=== PATIENT | female | born 1945 | race Caucasian/White ===

== ENCOUNTER 2016-11-02 23:35 | Emergency (ER) | payer MEDICARE, OTHER, MEDICAID ==
[~2016-11-02] VITALS: Ht 160 cm; Wt 90.7 kg
[~2016-11-02 23:35] MED LIST: BENTYL10 MG PO; BUPROPION XL300 MG PO; CHOLESTYRAMINE P4 GM PO; CITALOPRAM HBR40 MG PO; DILAUDID4 MG PO; LEVOTHYROXINE25 MCG PO; OXYCODONE-ACET1 EAC1 PO; SULFASALAZINE500 MG PO; ZOFRAN ODT4 MG PO
[2016-11-04] MEDS ORDERED: BENTYL10 MG PO (14:42)
[2016-11-04] MEDS ORDERED: BACTRIM DS TAB1 EACH PO (14:43)
== END 2016-11-03 03:02 | disposition home or self-care (01) ==
LOC: ED 23:35
DX: R10.10 Upper abdominal pain, unspecified (principal); R19.7 Diarrhea, unspecified; R11.2 Nausea with vomiting, unspecified; Z98.890 Other specified postprocedural states; Z79.899 Other long term (current) drug therapy
CPT/HCPCS: 80053; 83690; 85025; 96361; 96374; 96375; 99284; J1170; J2405; J7030

== ENCOUNTER 2016-11-04 12:58 | Emergency (ER) | payer MEDICARE, OTHER, MEDICAID ==
[~2016-11-04] VITALS: Ht 160 cm; Wt 90.7 kg
[2016-11-04] MEDS ORDERED: BENTYL10 MG PO (14:42)
[2016-11-04] MEDS ORDERED: BACTRIM DS TAB1 EACH PO (14:43)
== END 2016-11-04 15:02 | disposition home or self-care (01) ==
LOC: ED 12:58
DX: K29.70 Gastritis, unspecified, without bleeding (principal); Z90.49 Acquired absence of other specified parts of digestive tract; Z98.890 Other specified postprocedural states; Z79.899 Other long term (current) drug therapy
CPT/HCPCS: 74177; 80053; 82150; 83690; 85025; 96361; 96374; 96375; 99284; J1170; J2405; J7030; Q9967

== ENCOUNTER 2016-11-05 11:13 | Emergency (ER) | payer MEDICARE, OTHER, MEDICAID ==
[~2016-11-05] VITALS: Ht 160 cm; Wt 90.7 kg
[~2016-11-05 11:13] MED LIST changes: +BACTRIM DS TAB1 EACH PO
== END 2016-11-05 15:13 | disposition home or self-care (01) ==
LOC: ED 11:13
DX: R11.10 Vomiting, unspecified (principal); F12.10 Cannabis abuse, uncomplicated; Z79.899 Other long term (current) drug therapy
CPT/HCPCS: 74020; 80053; 81001; 82150; 83690; 85025; 96361; 96372; 96374; 99283; J1885; J2550; J3486; J7030

== ENCOUNTER 2019-02-05 15:57 | Observation (INO) | payer MEDICARE, OTHER, MEDICAID ==
[~2019-02-05] VITALS: Ht 160 cm; Wt 73.0 kg
--- OUTSIDE RECORDS SUMMARY | 2019-02-05 16:00 | XMS ---
PreManage Notification: JULITO VALDEZ Security Insurance Administrator Events No recent Security Events currently on file CRITERIA MET - Group Notification - 6 ED Visits in 6 Months - [facility] - Has Care Guidelines - [facility] - 3 Facilities in 90 Days - [facility] - 2 Visits in 30 Days CARE PROVIDERS Dave Kruger DO [facility] Current PHONE: Unknown Koko Dobson Community Health Worker 01/31/2019-Current PHONE: [phone] DAVE KRUGER [facility] Care Current PHONE: Unknown Dave Kruger DO [facility] Current PHONE: Unknown DR DAVE KRUGER Primary Care 09/24/2016-Current PHONE: [phone] ordavid Case or Parimutuel Ticket Seller Current PHONE: Unknown Marivel has no Care Guidelines for this patient. Care History Medical/Surgical 01/21/2019 [facility] Patient indicates to ED SLIP BRIDGE OPERATOR that the only thing that helps her abdominal pain is dilaudid dispite being in her record that benadryl and haldol have worked in the past. Haldol, Benadryl and Zofran habe been administered with marked improvment in her symptoms. 11/25/2016 [facility] ACCORDING TO PCP OFFICE, PATIENT HAS CHRONIC ABD PAIN AND IS SUPPOSED TO CALL THEM WHEN SHE IS EXPERIENCING PAIN. PCP IS DR DAVE KRUGER, OF [facility] AT [phone]. E.D. VISIT COUNT (12 MO.) 3 [facility] Billy HMaria Guadalupe 2 [facility] 11 Luan Josiah YaelMaria Guadalupe 1 VIDYA [place] TOTAL 17 NOTE: Visits indicate total known visits. ED/UCC VISIT TRACKING (12 MO.) 02/05/2019 15:57 VIDYA Menendez [place] TYPE: Emergency COMPLAINT: - ABD PAIN, VOMITING 02/01/2019 13:24 Luan GUAJARDO [place] TYPE: Emergency DIAGNOSES: - Abdominal pain - Generalized abdominal pain 01/30/2019 15:52 [facility] [place] TYPE: Emergency DIAGNOSES: - Nausea - Acute cystitis without hematuria - Generalized abdominal pain - ABD PAIN 01/23/2019 09:15 [facility] Billy MCKEE TYPE: Emergency DIAGNOSES: - Abdominal Pain - Generalized abdominal pain 01/21/2019 16:11 [facility] Billy MCKEE TYPE: Emergency DIAGNOSES: - EMS' Triage; Abdomen Pain - Abdominal Pain - Nausea - Unspecified abdominal pain 01/15/2019 20:00 Luan MARIN TYPE: Emergency DIAGNOSES: - Abdominal Pain - Stomach Pain - Generalized abdominal pain - Other chronic pain 01/05/2019 18:13 Luan Rahman YaelMaria Guadalupe GUAJARDO [place] TYPE: Emergency DIAGNOSES: - abdominal pain - Acute cystitis with hematuria - Other chronic pain - Hypokalemia - Generalized abdominal pain - Acute cystitis with hematuria 01/02/2019 20:32 Luan MARIN TYPE: Emergency DIAGNOSES: - Dehydration - Nausea - Acidosis - Generalized abdominal pain - abdominal pain 12/29/2018 04:34 Luan MARIN TYPE: Emergency DIAGNOSES: - Trichomoniasis, unspecified Trichomon - Other specified abnormal findings of blood chemistry - abdominal pain - Acute cystitis without hematuria 08/08/2018 15:07 [facility] Billy MCKEE TYPE: Emergency DIAGNOSES: - Shaking - Unsp adverse effect of drug or medicament, init encntr - Weakness 08/01/2018 09:04 Luan GUAJARDO [place] TYPE: Emergency DIAGNOSES: - Abdominal Pain - Generalized abdominal pain - Cyclical vomiting, in migraine, not intractable 07/30/2018 20:19 Luan GUAJARDO [place] TYPE: Emergency DIAGNOSES: - Generalized abdominal pain - Nausea - Abdominal Pain 07/26/2018 14:19 Luan GUAJARDO [place] TYPE: Emergency DIAGNOSES: - Abdominal Pain - Dvrtclos of lg int w/o perforation or abscess w/o bleeding - Diaphragmatic hernia without obstruction or gangrene - Lower abdominal pain, unspecified 07/21/2018 20:09 Luan GUAJARDO [place] TYPE: Emergency DIAGNOSES: - Abdominal Pain - Gastro-esophageal reflux disease with esophagitis - Dyskinesia of esophagus - Diaphragmatic hernia without obstruction or gangrene 07/16/2018 11:00 [facility] [place] TYPE: Emergency DIAGNOSES: - Nausea with vomiting, unspecified - Epigastric pain - ABD AND BACK PAIN 06/12/2018 20:28 Luan GUAJARDO [place] TYPE: Emergency DIAGNOSES: - Vomiting, unspecified - Unspecified abdominal pain - Abdominal Pain - Diarrhea, unspecified 03/14/2018 10:25 Luan GUAJARDO [place] TYPE: Emergency DIAGNOSES: - Knee Pain - Pain in left leg - Leg Pain (Non-traumatic) INPATIENT VISIT TRACKING (12 MO.) No inpatient visits to display in this time frame [email or web address]
[2019-02-05] MEDS ORDERED: PHENADOZ25 MG PR (16:19)
[2019-02-05] MEDS ORDERED: LISINOPRIL-HCT1 EAC2 PO (16:20)
--- NOTE | 2019-02-05 22:30 | NUR ---
PT ARRIVES TO MED SURG ROOM 116 FROM ED, ADMITTED WITH DEHYDRAION AND ABD PAIN. IS ALERT AND ORIENTED, IN TO BR TO VOID SBA AND THEN INTO BED. GIVEN JELLO AND WATER. DENIES NAUSEA AT THIS TIME. LOVENOX AND IV REGLAN GIVEN AND PT STARTED ON IVF AT 125. PLAN OF CARE FOR THE NIGHT DISCUSSED WITH PT, ASSESSMENT DONE. PT HAS NO QUESTIONS AT THIS TIME AND STATES SHE IS VERY HAPPY WITH CARE SO FAR. VSS.
--- NOTE | 2019-02-06 00:39 | NUR ---
IN TO CHECK ON PT, APPEARS TO BE SLEEPING, RESP EVEN AND UNLABORED.
--- NOTE | 2019-02-06 01:31 | NUR ---
PT CALLS TO C/O LOWER BACK PAIN, ACCROSS FLANKS AND STATES IT WOKE HER UP AND SHE HAS A UTI AND REQUESTS PAIN MEDS. TYLENOL 500MG PO GIVEN.
--- NOTE | 2019-02-06 02:40 | NUR ---
PT APPEARS RESTFUL/SLEEPING. RESP EVEN AND UNLABORED. IVF INFUSING.
--- NOTE | 2019-02-06 04:30 | NUR ---
AWAKENS EASILY FOR VITALS AND ASSESSMENT. DENIES PAIN, STATES THAT HER ABD PAIN HAD STARTED BACK UP A BIT AGO BUT SHE WAS ABLE TO RELAX AND GO BACK TO SLEEP AND IT WENT AWAY. TOLERATING WATER AND JELLO. SPO2 WAS 90% ON ROOM AIR SO O2/2L/NC APPLIED AND SPO2 UP TO 94-95%.
--- NOTE | 2019-02-06 06:06 | NUR ---
PT CALLS TO STATE SHE THINKS HER ABD PAIN MAY BE RETURNING AND REQUESTING PAIN MEDS FOR IT. DESCRIBES IT "I JUST KEEP BEARING DOWN, OVER AND OVER AND THIS IS HOW IT STARTS". IS WONDERING IF SHE DRANK TOO MUCH WATER OR ATE TOO MUCH JELLO. FIRST REQUESTED IV PAIN MED SHE DOESNT WANT TO PUT ANYTHING IN HER STOMACH BUT AGREES TO TRY THE OXYCODONE. STATES IT IS NOT NAUSEA JUST THE LOWER ABDOMINAL PAIN/PRESSURE. 5MG OXYCODONE GIVEN WITH OTTONIEL REGLAN. WILL CALL IF PAIN DOES NOT IMPROVE.
--- NOTE | 2019-02-06 06:36 | NUR ---
PT ADMITTED LAST NIGHT FOR ABD PAIN WITH NAUSEA, VOMITING AND DEHYDRATION. WAS STARTED ON IVF AND CLEAR LIQUIDS, PAIN WAS GONE ON ARRIVAL TO UNIT BUT RETURNED THIS MORNING APPROX 0600 AND WAS GIVEN OXYCODONE. SHE C/O BILAT FLANK PAIN/LOWER BACK PAIN IN THE NIGHT THAT SHE FELT WAS RELATED TO A UTI AND WAS GIVEN TYLENOL. HAS TOLERATED JELLO AND WATER WITH NO NAUSEA OR EMESIS. URINE OUTPUT WAS MARGINAL BUT WITHIN PARAMETERS. WAS ABLE TO SLEEP FOR A FEW HOURS.
--- NOTE | 2019-02-06 08:03 | NUR ---
MORNING ASSESSMENT DONE. PATIENT RATES ABD PAIN 4/10, SLIGHTLY NAUSEATED AND GIVEN 4MG OF IV ZOFRAN FOR THIS. IVF INFUSING. PATIENT WEARING OXYGEN FOR SLEEP, 98% ON 2L, PATIENT IS ON ROOM AIR AT THIS TIME. PATIENT DENIES WANTING TO GET UP TO THE CHAIR FOR BREAKFAST, PREFERS TO REST IN BED. NO OTHER NEEDS AT THIS TIME.
--- NOTE | 2019-02-06 08:57 | NUR ---
PATIENT RESTING IN BED. SETS UP BATHROOM FOR SHOWER. IV WRAPPED. PATIENT GOES TO TAKE A SHOWER. LINENS CHANGED. WARM BLANKETS PROVIDED. CALL LIGHT WITHIN REACH. NO OTHER NEEDS AT THIS TIME
--- NOTE | 2019-02-06 09:13 | NUR ---
PATIENT RESTING IN BED. VITAL SIGNS AND I&O DONE. CALL LIGHT WITHIN REACH. NO OTHER NEEDS AT THIS TIME
--- NOTE | 2019-02-06 09:22 | NUR ---
PATIENT UP TO SHOWER, TOLERATED ACTIVITY WELL. IVF RESUMED. PATIENT FEELS "OKAY" TO TAKE MORNING PILLS.
--- NOTE | 2019-02-06 10:14 | NUR ---
PATIENT IS DOING WELL WITH CLEAR LIQUID, NO NAUSEA. PATIENT GIVEN 5MG OF PO OXYCODONE FOR 3/10 PAIN.
--- NOTE | 2019-02-06 11:13 | NUR ---
PATIENT ADVANCED TO FULL LIQUID DIET FOR LUNCH. DISCUSSED MENU CHOICES WITH PATIENT. NO NAUSEA AT THIS TIME.
--- NOTE | 2019-02-06 11:19 | NUR ---
CALL LIGHT ANSWERED. PATIENT RESTING IN BED. IN ROOM. PATIENT GOES TO USE BATHROOM. ONE PERSON ASSISTING. PATIENT BACKS TO BED. ICE WATER GIVEN. CALL LIGHT WITHIN REACH. NO OTHER NEEDS AT THIS TIME
--- NOTE | 2019-02-06 11:30 | NUR ---
Spoke with Camille and her . She states she has had abd pain for 10 years off and on. 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 does the cooking, cleaning, and laundry as she easliy fatigues. She states concern to go home today as she is tired and not feeling that well. Nurses notified.
--- NOTE | 2019-02-06 13:20 | NUR ---
PATIENT RESTING IN BED. IN ROOM. VITAL SIGNS AND I&O DONE. PATIENT GOES TO USE BATHROOM. ONE PERSON ASSISTING. PATIENT BACKS TO BED. CALL LIGHT WITHIN REACH. NO OTHER NEEDS AT THIS TIME
--- NOTE | 2019-02-06 14:10 | NUR ---
PATIENT ON A FULL LIQUID DIET, SPOUSE ORDERED HOT TURKEY SANDWICH AND SALAD FOR PATIENT. PATIENT REPORTS SHE DID NOT EAT VERY MUCH OF HER LUNCH, IS HAVING SOME NAUSEA. IV ZOFRAN 4MG GIVEN.
--- NOTE | 2019-02-06 14:49 | NUR ---
DR. MENDES IN TO SEE PATIENT, PLAN IS FOR PATIENT TO STAY ONE MORE DAY.
[2019-02-06] MEDS ORDERED: LEVOTHYROXINE50 MCG PO (15:37)
[2019-02-06] MEDS ORDERED: TRAZODONE HCL100 MG PO (15:39)
--- NOTE | 2019-02-06 17:10 | NUR ---
PATIENT FEELING SLIGHTLY BETTER TODAY, TOLERATING A FULL LIQUID BETTER THIS EVENING.
--- NOTE | 2019-02-06 17:55 | NUR ---
PATIENT HAS BEEN FEELING SLIGHTLY BETTER TODAY, INCREASED INTAKE OF BLAND FOODS ON A FULL LIQUID DIET. IVF OF LR@75ML/HOUR INFUSING TO RIGHT AC. PATIENT IS SBA TO BATHROOM. DISCUSSED WITH PATIENT THE NEED TO ADVANCE DIET SLOWLY. PATENT HAS REQUIRED LESS PAIN MEDICATIONS THIS EVENING.
--- NOTE | 2019-02-06 19:56 | NUR ---
IN BED, RECEIVED SCHEDULED REGLAN 5MG IV, C/O ABD PAIN, MEDICATED WITH OXYCODONE 5MG PO C/O ABD PAIN/CRAMPING, ON ROOM AIR, IVF INFUSING, REPOSITIONS SELF, NO C/O N/V AT THIS TIME. ON FULL LIQUIDS, CALL LIGHT AND FLUIDS AT BEDSIDE
--- NOTE | 2019-02-06 20:30 | NUR ---
ROUNDED CHARGE. PATIENT IS RESTING IN BED. PATIENT PROVIDEED WITH FRESH ICE WATER AND ICE CHIPS. PATIENT DENIES ANY COMMENTS, QUESTIONS OR COCNERNS. PATIENT ASSISTED TO THE RESTROOM AND EDUCATED TO PULL BLUE CORD WHEN DONE.
--- NOTE | 2019-02-06 21:43 | NUR ---
ASSISTED PT TO RESTROOM. AMBULATED WITHOUT ASSISTANCE.
--- NOTE | 2019-02-06 23:39 | NUR ---
RESTING, EYES CLOSED, NO RESP DISTRESS, IVF INFUSING, NO FURTHER C/O N/V OR PAIN. CALL LIGHT AT BEDSIDE
--- NOTE | 2019-02-07 00:03 | NUR ---
UP TO BR, VOIDED, BACK TO BED, TOLERATED WELL, REPOSITIONS SELF IN BED. TOLERATING SIPS OF FLUID WELL. NO C/O N/V OR PAIN. IVF INFUSING WELL. PT WEARING HER OWN CLOTHES
--- NOTE | 2019-02-07 02:01 | NUR ---
RESTING, NO RESP DISTRESS, NO FURTHER C/O N/V OR PAIN AT THIS TIME
--- NOTE | 2019-02-07 03:07 | NUR ---
awake, after getting up to br, voided, back to bed, warm blanket given on requests, denies n/v or c/o abd pain, using call light appropriately
--- NOTE | 2019-02-07 05:27 | NUR ---
PT HAS SLEPT MOST OF THIS SHIFT, UP TO BR WITH ASSIST, VOIDING QS, NO N/V THIS SHIFT. WAS MEDICATED WITH SCHEDULED REGLAN AND OXYCODONE X1 PER C/O ABD PAIN WITH GOOD PAIN RELIEF. IVF INFUSING W/O PROBLEMS. COOPERATIVE WITH ASSESSMENT
--- NOTE | 2019-02-07 06:44 | NUR ---
pt up to br, voided, back to bed, c/o abd feeling weird, anxious look in her face, bowels assessed, he bowel tones auscultated in r quads, has had no bm this shift, and pt denies passing gas or burping. Medicated with Oxycodone 5mg po c/o 09/03 abd pain. abd soft to touch, no emesis, received Reglan 5mg IV scheduled, tolerating ice chips and fluids, pt on full liquids diet. Reassured. calmer at thist dre, will continue to reassure and medicated as needed.
--- NOTE | 2019-02-07 07:29 | NUR ---
0725: BEDSIDE REPORT RECIEVED FROM SHAWN NEVES. PT RESTING IN HER BED AND SHE DENIES ANY ABD PAIN OR PROBLEMS AT THIS TIME. CALL LIGHT WITHIN REACH.
--- NOTE | 2019-02-07 08:29 | NUR ---
PT RESTING IN HER BED AND SHE STATES HER ABD PAIN IS A 2/10 WHICH IS ACCEPTABLE TO HER. HER ABD SOUNDS ARE ACTIVE IN ALL QUADS AND SHE ATE HER FULL LIQUID DIET THIS AM AND STATES THE PAIN IS UNCHANGED SINCE EATING. PT DENIES ANY OTHER PROBLEMS.
[2019-02-07] MEDS ORDERED: PHENADOZ25 MG PR ×2 (09:25→10:02)
[2019-02-07] MEDS ORDERED: BACTRIM DS TAB1 EACH PO (10:03)
[2019-02-07] MEDS ORDERED: ONDANSETRON ODT4 MG PO (10:05)
[2019-02-07] MEDS ORDERED: VITAMIN B-121000 MCG PO (10:08)
[2019-02-07] MEDS ORDERED: MULTI-VITAMIN1 EACH PO (10:08)
--- NOTE | 2019-02-07 10:13 | NUR ---
MED REC COMPLETE
--- NOTE | 2019-02-07 10:13 | NUR ---
Pt states, "I'm doing okay". She states her abd pain remains at a 2/10 which is acceptable to her and that it is "much better" than when she came into the hospital.
[2019-02-07] MEDS ORDERED: OXYCODONE HCL5 MG PO (11:14)
--- NOTE | 2019-02-07 12:30 | NUR ---
LATE ENTRY FROM 1000 THIS MORNING: PATIENT WAS ADMITTED AT HIGH RISK FOR MALNUTRITION DUE TO RECENT WEIGHT LOSS. SHE STATES SHE HAS LOST ABOUT 24 LBS IN THE LAST SEVERAL WEEKS BECAUSE SHE HAS NOT FELT LIKE EATING DUE TO STOMACH PAIN OR KNOWING SHE WOULD VOMIT THE FOOD BACK UP. SHE WAS ONLY TAKING BITES OF FOOD. SHE WAS TOLERATING FULL LIQUIDS OK PRIOR TO DISCHARGE, BUT NOT EATING A LOT. I MENTIONED SHE SHOULD TRY ENSURE FOR ADDED CALORIES AND PROTEIN. THE GOAL IS FOR HER TO EAT REGULAR, BALANCED MEALS TO MEET HER NUTRITION NEEDS, BUT UNTIL SHE IS ABLE TO EAT MORE SHE SHOULD DRINK 2 ENSURES DAILY. SHE IS WILLING TO TRY IT AND APPRECIATED KNOWING THAT WOULD BE HELPFUL TO HER.
== END 2019-02-07 11:55 | disposition home or self-care (01) ==
LOC: ED 15:57 → CCU 15:58 → MS 15:58
PROVIDERS: ADMIT Internal Medicine
DX: R10.13 Epigastric pain (principal); G89.29 Other chronic pain; E86.0 Dehydration; K58.9 Irritable bowel syndrome, unspecified; K51.90 Ulcerative colitis, unspecified, without complications; I10 Essential (primary) hypertension; E03.9 Hypothyroidism, unspecified; F33.9 Major depressive disorder, recurrent, unspecified; Z79.899 Other long term (current) drug therapy; Z85.048 Personal history of other malignant neoplasm of rectum, rectosigmoid junction, and anus; Z90.49 Acquired absence of other specified parts of digestive tract
CPT/HCPCS: 51701; 74177; 80048; 80053; 81001; 83690; 85025; 86140; 94760; 96361; 96372; 96375; 96376; 99285-25; G0378; J1650; J1885; J2270; J2405; J2765; J7030; J7121

== ENCOUNTER 2019-02-11 08:46 | Emergency (ER) | payer MEDICARE, OTHER, MEDICAID ==
[~2019-02-11] VITALS: Ht 160 cm; Wt 73.0 kg
[~2019-02-11 08:46] MED LIST changes: +LEVOTHYROXINE50 MCG PO; +LISINOPRIL-HCT1 EAC2 PO; +MULTI-VITAMIN1 EACH PO; +ONDANSETRON ODT4 MG PO; +OXYCODONE HCL5 MG PO; +PHENADOZ25 MG PR; +TRAZODONE HCL100 MG PO; +VITAMIN B-121000 MCG PO
--- OUTSIDE RECORDS SUMMARY | 2019-02-11 08:50 | XMS ---
PreManage Notification: JULITO VALDEZ Security First Aid Teacher Events No recent Security Events currently on file CRITERIA MET - Group Notification - 6 ED Visits in 6 Months - [facility] - Has Care Guidelines - [facility] - 3 Facilities in 90 Days - [facility] - 2 Visits in 30 Days CARE PROVIDERS Dave Kruger DO [facility] Current PHONE: Unknown Koko Dobson Community Health Worker 01/31/2019-Current PHONE: [phone] DAVE KRUGER [facility] Care Current PHONE: Unknown Dave Kruger DO [facility] Current PHONE: Unknown DR DAVE KRUGER Primary Care 09/24/2016-Current PHONE: [phone] ordavid Case or Animal Keeper Current PHONE: Unknown Marivel has no Care Guidelines for this patient. Care History Medical/Surgical 01/21/2019 [facility] Patient indicates to ED AVIATION PROJECT MANAGER that the only thing that helps her abdominal pain is dilaudid dispite being in her record that benadryl and haldol have worked in the past. Haldol, Benadryl and Zofran habe been administered with marked improvment in her symptoms. 11/25/2016 [facility] ACCORDING TO PCP OFFICE, PATIENT HAS CHRONIC ABD PAIN AND IS SUPPOSED TO CALL THEM WHEN SHE IS EXPERIENCING PAIN. PCP IS DR DAVE KRUGER, OF [facility] AT [phone]. E.D. VISIT COUNT (12 MO.) 3 [facility] Billy HMaria Guadalupe 2 [place] [id number] Luan Pena 2 VIDYA Peralta TOTAL 18 NOTE: Visits indicate total known visits. ED/UCC VISIT TRACKING (12 MO.) 02/11/2019 08:47 VIDYA Menendez [place] TYPE: Emergency COMPLAINT: - STOMACH PAIN 02/05/2019 15:57 VIDYA Menendez [place] TYPE: Emergency COMPLAINT: - ABD PAIN, VOMITING 02/01/2019 13:24 Luan Josiah YaelMaria Guadalupe MARIN TYPE: Emergency DIAGNOSES: - Abdominal pain - Generalized abdominal pain 01/30/2019 15:52 [facility] [place] TYPE: Emergency DIAGNOSES: - Nausea - Acute cystitis without hematuria - Generalized abdominal pain - ABD PAIN 01/23/2019 09:15 [facility] Billy MCKEE TYPE: Emergency DIAGNOSES: - Abdominal Pain - Generalized abdominal pain 01/21/2019 16:11 [facility] Billy MCKEE TYPE: Emergency DIAGNOSES: - EMS' Triage; Abdomen Pain - Abdominal Pain - Nausea - Unspecified abdominal pain 01/15/2019 20:00 Luan Olivaresbijal YaelMaria Guadalupe GUAJARDO [place] TYPE: Emergency DIAGNOSES: - Abdominal Pain - Stomach Pain - Generalized abdominal pain - Other chronic pain 01/05/2019 18:13 Luan Olivaresbijal YaelMaria Guadalupe GUAJARDO [place] TYPE: Emergency DIAGNOSES: - abdominal pain - Acute cystitis with hematuria - Other chronic pain - Hypokalemia - Generalized abdominal pain - Acute cystitis with hematuria 01/02/2019 20:32 Luan Rahman YaelMaria Guadalupe GUAJARDO [place] TYPE: Emergency DIAGNOSES: - Dehydration - Nausea - Acidosis - Generalized abdominal pain - abdominal pain 12/29/2018 04:34 Luan GUAJARDO [place] TYPE: Emergency DIAGNOSES: - Trichomoniasis, unspecified Trichomon - Other specified abnormal findings of blood chemistry - abdominal pain - Acute cystitis without hematuria 08/08/2018 15:07 [place] Billy YaelMaria Guadalupe MCKEE TYPE: Emergency DIAGNOSES: - Shaking - Unsp adverse effect of drug or medicament, init encntr - Weakness 08/01/2018 09:04 Luan MARIN TYPE: Emergency DIAGNOSES: - Abdominal Pain - Generalized abdominal pain - Cyclical vomiting, in migraine, not intractable 07/30/2018 20:19 Luan MARIN TYPE: Emergency DIAGNOSES: - Generalized abdominal pain [...] hernia without obstruction or gangrene 07/16/2018 11:00 [facility] [place] TYPE: Emergency DIAGNOSES: - Nausea [...] Pain (Non-traumatic) INPATIENT VISIT TRACKING (12 MO.) 02/05/2019 15:[address] [facility] [place] TYPE: Observation COMPLAINT: - NAUSEA/VOMITING/DEHYDRATION DIAGNOSES: - Unspecified abdominal pain - Other cheese wrapper (current) drug therapy - Essential (primary) hypertension - Irritable bowel syndrome without diarrhea - Dehydration - Ulcerative colitis, unspecified, without complications - Major depressive disorder, recurrent, unspecified - Other chronic pain - Epigastric pain - Prsnl hx of malig neoplm of rectum, rectosig junct, and anus - Acquired absence of other specified parts of digestive tract - Hypothyroidism, unspecified [id number]
[2019-02-11] MEDS ORDERED: PROMETHAZINE12.5 M1 PO (14:49)
== END 2019-02-11 15:26 | disposition home or self-care (01) ==
LOC: ED 08:46
DX: R10.84 Generalized abdominal pain (principal); R19.7 Diarrhea, unspecified; E87.6 Hypokalemia; Z79.899 Other long term (current) drug therapy
CPT/HCPCS: 80053; 81001; 83690; 85025; 96374; 96375; 99284-25; J1170; J1200; J1630; J2405; J7121

== ENCOUNTER 2019-09-08 22:50 | Emergency (ER) | payer MEDICARE, OTHER, MEDICAID ==
[~2019-09-08] VITALS: Ht 160 cm; Wt 83.5 kg
[~2019-09-08 22:50] MED LIST changes: +PROMETHAZINE12.5 M1 PO
--- OUTSIDE RECORDS SUMMARY | 2019-09-08 22:52 | XMS ---
PreManage Notification: JULITO VALDEZ Security Sole Layer Events No recent Security Events currently on file CRITERIA MET - Group Notification - [facility] - Has Care Guidelines CARE PROVIDERS Dave Kruger [facility] Current PHONE: [phone] Koko Dobson Community Health Worker 01/31/2019-Current PHONE: [phone] Marivel has no Care Guidelines for this patient. Care History Medical/Surgical 01/21/2019 [facility] Patient indicates to ED BOX FABRICATOR that the only thing that helps her abdominal pain is dilaudid dispite being in her record that benadryl and haldol have worked in the past. Haldol, Benadryl and Zofran habe been administered with marked improvment in her symptoms. 11/25/2016 [facility] ACCORDING TO PCP OFFICE, PATIENT HAS CHRONIC ABD PAIN AND IS SUPPOSED TO CALL THEM WHEN SHE IS EXPERIENCING PAIN. PCP IS DR DAVE KRUGER, OF [facility] AT [phone]. E.D. VISIT COUNT (12 MO.) 2 [facility] Billy Pena 1 [facility] 6 Luan OlivaresRoss 3 VIDYA Peralta TOTAL 12 NOTE: Visits indicate total known visits. ED/UCC VISIT TRACKING (12 MO.) 09/08/2019 22:50 VIDYA Menendez [place] TYPE: Emergency COMPLAINT: - FALL 02/16/2019 15:35 Luan GUAJARDO [place] TYPE: Emergency DIAGNOSES: - Unspecified abdominal pain - back pain, diarrhea - Hematuria, unspecified - Back Pain - Low back pain - Other chronic pain 02/11/2019 08:47 VIDYA [place]endez [place] TYPE: Emergency COMPLAINT: - STOMACH PAIN DIAGNOSES: - Diarrhea, unspecified - Hypokalemia - Other group home (current) drug therapy - Generalized abdominal pain 02/05/2019 15:57 VIDYA [place] TYPE: Emergency COMPLAINT: - ABD PAIN, VOMITING 02/01/2019 13:24 Luan GUAJARDO [place] TYPE: Emergency DIAGNOSES: - Abdominal pain - Generalized abdominal pain 01/30/2019 15:52 [facility] [place] TYPE: Emergency DIAGNOSES: - Nausea - Acute cystitis without hematuria - Generalized abdominal pain - ABD PAIN 01/23/2019 09:15 [facility] Billy MCKEE TYPE: Emergency DIAGNOSES: - Abdominal Pain - Generalized abdominal pain 01/21/2019 16:11 [facility] Billy MCKEE TYPE: Emergency DIAGNOSES: - EMS' Triage; Abdomen Pain - Abdominal Pain - Nausea - Unspecified abdominal pain 01/15/2019 20:00 Luan MARIN TYPE: Emergency DIAGNOSES: - Abdominal Pain - Stomach Pain - Generalized abdominal pain - Other chronic pain 01/05/2019 18:13 Luan GUAJARDO [place] TYPE: Emergency DIAGNOSES: - abdominal pain - Acute cystitis with hematuria - Other chronic pain - Hypokalemia - Generalized abdominal pain - Acute cystitis with hematuria 01/02/2019 20:32 Luan GUAJARDO [place] TYPE: Emergency DIAGNOSES: - Dehydration - Nausea - Acidosis - Generalized abdominal pain - abdominal pain 12/29/2018 04:34 Luan GUAJARDO [place] TYPE: Emergency DIAGNOSES: - Trichomoniasis, unspecified - Other specified abnormal findings of blood chemistry - abdominal pain - Acute cystitis without hematuria INPATIENT VISIT TRACKING (12 MO.) 02/05/2019 15:58 VIDYA Menendez [place] TYPE: Observation COMPLAINT: - NAUSEA/VOMITING/DEHYDRATION DIAGNOSES: - Unspecified abdominal pain - Other group home (current) drug therapy - Essential (primary) hypertension - Irritable bowel syndrome without diarrhea - Dehydration - Ulcerative colitis, unspecified, without complications - Major depressive disorder, recurrent, unspecified - Other chronic pain - Epigastric pain - Personal history of other malignant neoplasm of rectum, recto - Acquired absence of other specified parts of digestive tract - Hypothyroidism, unspecified [email or web address]
[2019-09-09] MEDS ORDERED: NORCO 5-325 TA1 EACH PO (00:48)
== END 2019-09-09 00:57 | disposition home or self-care (01) ==
LOC: ED 22:50
DX: S30.0XXA Contusion of lower back and pelvis, initial encounter (principal); Z79.899 Other long term (current) drug therapy; W18.30XA Fall on same level, unspecified, initial encounter
CPT/HCPCS: 72100; 72170; 99283-25

== ENCOUNTER 2019-12-17 15:08 | Emergency (ER) | payer MEDICARE, OTHER, MEDICAID ==
[~2019-12-17] VITALS: Ht 160 cm; Wt 88.9 kg
[~2019-12-17 15:08] MED LIST changes: +NORCO 5-325 TA1 EACH PO
--- OUTSIDE RECORDS SUMMARY | 2019-12-17 15:12 | XMS ---
PreManage Notification: JULITO VALDEZ Security Alignment Specialist Events No recent Security Events currently on file CRITERIA MET - Group Notification - [facility] - Has Care Guidelines - PDMP CARE PROVIDERS Dave Kruger [facility] Current PHONE: [phone] Koko Dobson Community Health Worker 01/31/2019-Current PHONE: [phone] Marivel has no Care Guidelines for this patient. Care History Medical/Surgical 01/21/2019 [facility] Patient indicates to ED GREEN HIDE INSPECTOR that the only thing that helps her abdominal pain is dilaudid dispite being in her record that benadryl and haldol have worked in the past. Haldol, Benadryl and Zofran habe been administered with marked improvment in her symptoms. 11/25/2016 [facility] ACCORDING TO PCP OFFICE, PATIENT HAS CHRONIC ABD PAIN AND IS SUPPOSED TO CALL THEM WHEN SHE IS EXPERIENCING PAIN. PCP IS DR DAVE KRUGER, OF [facility] AT [phone]. E.D. VISIT COUNT (12 MO.) 2 [facility] Billy Pena 1 [facility] 6 Luan Josiah Peralta TOTAL 13 NOTE: Visits indicate total known visits. ED/UCC VISIT TRACKING (12 MO.) 12/17/2019 15:09 [facility] [place] TYPE: Emergency COMPLAINT: - BACK PAIN 09/08/2019 22:50 [facility] [place] TYPE: Emergency COMPLAINT: - FALL DIAGNOSES: - Low back pain - Fall on same level, unspecified, initial encounter - Other intermodal owner operator truck driver (current) drug therapy - Contusion of lower back and pelvis, initial encounter 02/16/2019 15:35 Luan GUAJARDO [place] TYPE: Emergency DIAGNOSES: - Unspecified abdominal pain - back pain, diarrhea - Hematuria, unspecified - Back Pain - Low back pain - Other chronic pain 02/11/2019 08:47 [facility] [place] TYPE: Emergency COMPLAINT: - STOMACH PAIN DIAGNOSES: - Diarrhea, unspecified - Hypokalemia - Other usp (current) drug therapy - Generalized abdominal pain 02/05/2019 15:57 [facility] [place] TYPE: Emergency COMPLAINT: - ABD PAIN, VOMITING 02/01/2019 13:24 Luan Josiah YaelMaria Guadalupe MARIN TYPE: Emergency DIAGNOSES: - Abdominal pain - Generalized abdominal pain 01/30/2019 15:52 [facility] [place] TYPE: Emergency DIAGNOSES: - Nausea - Acute cystitis without hematuria - Generalized abdominal pain - ABD PAIN 01/23/2019 09:15 [facility] Billy MCKEE TYPE: Emergency DIAGNOSES: - Abdominal Pain - Generalized abdominal pain 01/21/2019 16:11 [facility] Billy MCKEE TYPE: Emergency DIAGNOSES: - EMS' Triage; Abdomen Pain - Abdominal Pain - Nausea - Unspecified abdominal pain 01/15/2019 20:00 Luan Josiah YaelMaria Guadalupe GUAJARDO [place] TYPE: Emergency DIAGNOSES: - Abdominal Pain - Stomach Pain - Generalized abdominal pain - Other chronic pain 01/05/2019 18:13 Luan Josiah YaelMaria Guadalupe GUAJARDO [place] TYPE: Emergency DIAGNOSES: [...] TRACKING (12 MO.) 02/05/2019 15:[address] [facility] [place] TYPE: Observation COMPLAINT: - NAUSEA/VOMITING/DEHYDRATION DIAGNOSES: - Unspecified abdominal pain - Other intermodal owner operator truck driver (current) drug therapy - Essential (primary) hypertension - Irritable bowel syndrome without diarrhea - Dehydration - Ulcerative colitis, unspecified, without complications - Major depressive disorder, recurrent, unspecified - Other chronic pain - Epigastric pain - Personal history of other malignant neoplasm of rectum, recto - Acquired absence of other specified parts of digestive tract - Hypothyroidism, unspecified [email or web address]
[2019-12-17] MEDS ORDERED: AMOXICILLIN500 MG PO (15:41)
[2019-12-17] MEDS ORDERED: MULTIVITAMINS1 EAC7 PO (15:42)
[2019-12-17] MEDS ORDERED: CHOLESTYRAMINE P4 GM PO (15:42)
[2019-12-17] MEDS ORDERED: PREDNISONE20 MG PO (17:41)
[2019-12-17] MEDS ORDERED: ACETAMINOPHEN-1 EAC1 PO (17:44)
== END 2019-12-17 18:08 | disposition home or self-care (01) ==
LOC: ED 15:08
DX: G89.29 Other chronic pain (principal); M54.5 Low back pain; Z79.899 Other long term (current) drug therapy
CPT/HCPCS: 99283; J7512

== ENCOUNTER 2020-10-04 02:18 | Emergency (ER) | payer MEDICARE, MEDICAID, OTHER ==
[~2020-10-04] VITALS: Ht 160 cm; Wt 88.9 kg
[~2020-10-04 02:18] MED LIST changes: +ACETAMINOPHEN-1 EAC1 PO; +AMOXICILLIN500 MG PO; +MULTIVITAMINS1 EAC7 PO; +PREDNISONE20 MG PO
--- OUTSIDE RECORDS SUMMARY | 2020-10-04 02:22 | XMS ---
PreManage Notification: JULITO VALDEZ Security Machine Staker Events No recent Security Events currently on file CRITERIA MET - PDMP - Group Notification CARE PROVIDERS Dave Kruger [facility] Current PHONE: [phone] Koko Dobson Community Health Worker 01/31/2019-Current PHONE: [phone] Marivel has no Care Guidelines for this patient. Care History Medical/Surgical 01/21/2019 [facility] Patient indicates to ED ACCOUNT EXECUTIVE SOFTWARE SALES that the only thing that helps her abdominal pain is dilaudid dispite being in her record that benadryl and haldol have worked in the past. Haldol, Benadryl and Zofran habe been administered with marked improvment in her symptoms. 11/25/2016 [facility] ACCORDING TO PCP OFFICE, PATIENT HAS CHRONIC ABD PAIN AND IS SUPPOSED TO CALL THEM WHEN SHE IS EXPERIENCING PAIN. PCP IS DR DAVE KRUGER, OF [facility] AT [phone]. E.D. VISIT COUNT (12 MO.) 2 VIDYA Peralta TOTAL 2 NOTE: Visits indicate total known visits. ED/UCC VISIT TRACKING (12 MO.) 10/04/2020 02:19 [facility] [place] TYPE: Emergency COMPLAINT: - ABDOM PAIN 12/17/2019 15:09 [facility] [place] TYPE: Emergency COMPLAINT: - BACK PAIN DIAGNOSES: - Other chronic pain - Low back pain - Pain in thoracic spine - Other intermodal dispatcher (current) drug therapy INPATIENT VISIT TRACKING (12 MO.) 07/23/2020 09:19 [facility] Roberto Mendez [place] TYPE: Orthopedic DIAGNOSES: - Mechanical loosening of internal left knee prosthetic joint, initial encounter [email or web address]
[2020-10-04] MEDS ORDERED: HYDROMORPHONE HC4 MG PO ×2 (02:30)
[2020-10-04] MEDS ORDERED: HYDROCODON-ACE1 EAC8 PO (02:30)
[2020-10-04] MEDS ORDERED: TRAMADOL HCL50 MG PO (02:30)
[2020-10-05] MEDS ORDERED: SERTRALINE HCL100 MG PO (13:51)
== END 2020-10-04 04:42 | disposition home or self-care (01) ==
LOC: ED 02:18
DX: R10.13 Epigastric pain (principal); Z79.899 Other long term (current) drug therapy; Z79.891 Long term (current) use of opiate analgesic
CPT/HCPCS: 80053; 81001; 83690; 85025; 96374; 96375; 99284-25; J1170; J2405; J7040

== ENCOUNTER 2020-10-05 13:30 | Emergency (ER) | payer MEDICARE, MEDICAID, OTHER ==
[~2020-10-05] VITALS: Ht 160 cm; Wt 88.9 kg
[~2020-10-05 13:30] MED LIST changes: +HYDROCODON-ACE1 EAC8 PO; +HYDROMORPHONE HC4 MG PO; +TRAMADOL HCL50 MG PO
[2020-10-05] MEDS ORDERED: SERTRALINE HCL100 MG PO (13:51)
--- OUTSIDE RECORDS SUMMARY | 2020-10-05 14:02 | XMS ---
PreManage Notification: JULITO VALDEZ Security Wrapper Rewinder Events No recent Security Events currently on file CRITERIA MET - [facility] - 2 Visits in 30 Days - Group Notification CARE PROVIDERS Dave Kruger [facility] Current PHONE: [phone] Koko Dobson Community Health Worker 01/31/2019-Current PHONE: [phone] Marivel has no Care Guidelines for this patient. Care History Medical/Surgical 01/21/2019 [facility] Patient indicates to ED FUNERAL HOME LOCATION MANAGER that the only thing that helps her abdominal pain is dilaudid dispite being in her record that benadryl and haldol have worked in the past. Haldol, Benadryl and Zofran habe been administered with marked improvment in her symptoms. 11/25/2016 [facility] ACCORDING TO PCP OFFICE, PATIENT HAS CHRONIC ABD PAIN AND IS SUPPOSED TO CALL THEM WHEN SHE IS EXPERIENCING PAIN. PCP IS DR DAVE KRUGER, OF [facility] AT [phone]. E.D. VISIT COUNT (12 MO.) [address] [facility] [address] [facility] [place] TOTAL 3 NOTE: Visits indicate total known visits. ED/UCC VISIT TRACKING (12 MO.) 10/05/2020 13:31 [facility] [place] [place] TYPE: Emergency COMPLAINT: - ABDOMINAL PAIN 10/04/2020 02:19 VIDYA Marie TYPE: Emergency COMPLAINT: - ABDOM PAIN 12/17/2019 15:09 VIDYA Marie TYPE: Emergency COMPLAINT: - BACK PAIN DIAGNOSES: - Other chronic pain - Low back pain - Pain in thoracic spine - Other usp (current) drug therapy INPATIENT VISIT TRACKING (12 MO.) 07/23/2020 09:19 [facility] DIAGNOSES: - Mechanical loosening of internal left knee prosthetic joint, initial encounter [email or web address]
== END 2020-10-06 00:20 | disposition home or self-care (01) ==
LOC: ED 13:30
DX: R10.13 Epigastric pain (principal); Z79.899 Other long term (current) drug therapy; Z79.891 Long term (current) use of opiate analgesic
CPT/HCPCS: 74177; 80053; 81001; 83690; 85025; 96375; 96376; 99284-25; J0500; J1170; J1790; J2405; J7030; Q9967

== ENCOUNTER 2020-10-08 20:00 | Inpatient (IN) | payer MEDICARE, OTHER, MEDICAID ==
[~2020-10-08] VITALS: Ht 160 cm; Wt 84.1 kg
[~2020-10-08 20:00] MED LIST changes: +SERTRALINE HCL100 MG PO
--- OUTSIDE RECORDS SUMMARY | 2020-10-08 20:02 | XMS ---
PreManage Notification: JULITO VALDEZ Security Valve Tester Events No recent Security Events currently on file CRITERIA MET - [facility] - 2 Visits in 30 Days - PDMP - Group Notification CARE PROVIDERS Dave Kruger [facility] Current PHONE: [phone] Koko Dobson Community Health Worker 01/31/2019-Current PHONE: [phone] Marivel has no Care Guidelines for this patient. Care History Medical/Surgical 01/21/2019 [facility] Patient indicates to ED COLLECTIONS AND ARCHIVES DIRECTOR that the only thing that helps her [...] PAIN. PCP IS DR DAVE KRUGER, OF [facility] AT [phone]. E.D. VISIT COUNT (12 MO.) [address] [facility] [place] TOTAL 4 NOTE: Visits indicate total known visits. ED/UCC VISIT TRACKING (12 MO.) 10/08/2020 20:00 [facility] [place] TYPE: Emergency COMPLAINT: - STOMACH PAIN, UNABLE TO EAT 10/05/2020 13:31 V[facility] Marie TYPE: Emergency COMPLAINT: - ABDOMINAL PAIN 10/04/2020 02:19 [facility] [place] TYPE: Emergency COMPLAINT: - ABDOM PAIN DIAGNOSES: - termite control technician (current) use of opiate analgesic - Epigastric pain - Other bed bug exterminator (current) drug therapy 12/17/2019 15:09 VIDYA Marie TYPE: Emergency COMPLAINT: - BACK PAIN DIAGNOSES: - Other chronic pain - Low back pain - Pain in thoracic spine - Other [facility] (current) drug therapy INPATIENT VISIT TRACKING (12 MO.) 07/23/2020 09:19 [facility] Roberto Mendez [place] TYPE: Orthopedic DIAGNOSES: - Mechanical loosening of internal left knee prosthetic joint, initial encounter [id number]
--- NOTE | 2020-10-09 07:11 | EKG ---
[facility] [address] [place], [place] [address] Signed Atrial flutter with variable AV block Left axis deviation ST \T\ T wave abnormality, consider inferolateral ischemia Abnormal ECG No previous ECGs available Confirmed by JUVE CROCKER MD ([id number]) on 10/09/2020 7:11:44 AM Electronically Signed By: JUVE CROCKER MD 10/09/20 0711 PATIENT NAME: JULITO VALDEZ ERNESTO Electrocardiogram DATE OF : 41 PHYSICIAN: JUVE CROCKER MD REPORT #: [id number] REPORT IS CONFIDENTIAL AND NOT TO BE RELEASED WITHOUT AUTHORIZATION
[2020-10-09] MEDS ORDERED: HYDROCODON-ACE1 EA10 PO (11:10)
[2020-10-09] MEDS ORDERED: VITAMIN D350 MCG PO (11:13)
[2020-10-12] MEDS ORDERED: DILTIAZEM 24HR120 MG PO (12:33)
[2020-10-12] MEDS ORDERED: HYDROMORPHONE HC2 MG PO (12:34)
[2020-10-12] MEDS ORDERED: PANTOPRAZOLE SO40 MG PO (12:35)
[2020-10-12] MEDS ORDERED: PREDNISONE10 MG PO (12:35)
== END 2020-10-12 13:30 | disposition home or self-care (01) | DRG 309 ==
LOC: ED 20:00 → CCU 10-09 00:26 → MS 10-10 22:10
PROVIDERS: ADMIT Internal Medicine; ATTEND Internal Medicine
DX: I48.91 Unspecified atrial fibrillation (principal); N17.9 Acute kidney failure, unspecified; E27.40 Unspecified adrenocortical insufficiency; K58.9 Irritable bowel syndrome, unspecified; E86.0 Dehydration; Z20.822 Contact with and (suspected) exposure to COVID-19; E03.9 Hypothyroidism, unspecified; G89.29 Other chronic pain; F41.9 Anxiety disorder, unspecified; F32.9 Major depressive disorder, single episode, unspecified; M54.9 Dorsalgia, unspecified; Z96.652 Presence of left artificial knee joint; Z90.49 Acquired absence of other specified parts of digestive tract; Z98.890 Other specified postprocedural states; Z98.818 Other dental procedure status; Z79.52 Long term (current) use of systemic steroids; Z79.899 Other long term (current) drug therapy
CPT/HCPCS: 51701; 80048; 80053; 81001; 83690; 83735; 84100; 85025; 93005; 93010; 99285-25; C9113; C9803; J1170; J1720; J2405; J7030; J7121; J7512; U0003

== ENCOUNTER 2023-09-13 23:19 | Emergency (ER) | payer MEDICARE, OTHER, MEDICAID ==
[~2023-09-13] VITALS: Ht 160 cm; Wt 70.0 kg
[~2023-09-13 23:19] MED LIST changes: +DILTIAZEM 24HR120 MG PO; +ELIQUIS5 MG PO; +HYDROCODON-ACE1 EA10 PO; +HYDROMORPHONE HC2 MG PO; +LIDODERM1 EACH TOP; +LOSARTAN POTASS25 MG PO; +METHYLPREDNISOLO4 M1 PO; +METOPROLOL SUCC50 MG PO; +PANTOPRAZOLE SO40 MG PO; +PREDNISONE10 MG PO; +VITAMIN D350 MCG PO
[2023-09-13] MEDS ORDERED: LACTATED RINGER'S 1,000 ML IV ONE (23:45)
[2023-09-13] MEDS ORDERED: Methylnaltrexone Bromide 12 MG/0.6 ML VIAL SUB-Q ONE (23:45)
[2023-09-13] MEDS ORDERED: KETOROLAC TROMETHAMINE 15 MG/ML VIAL IV ONE (23:45)
[2023-09-14] MEDS ORDERED: droPERidol 5 MG/2 ML VIAL IV ONE (00:45)
[2023-09-14] MEDS ORDERED: DEXAMETHASONE SOD PHOS 10 MG/ML VIAL IV ONE (01:15)
[2023-09-14] MEDS ORDERED: HYDROmorphone HCL 1 MG/ML SYR IV ONE (01:15)
[2023-09-14] MEDS ORDERED: FAMOTIDINE 20 MG/ 2 ML VIAL IV ONE (01:15)
[2023-09-14] MEDS ORDERED: METOPROLOL TARTRATE 5 MG/5 ML VIAL IV ONE (01:45)
[2023-09-14 02:18] VITALS: BP 159/96
== END 2023-09-14 02:18 | disposition home or self-care (01) ==
LOC: ED 23:19
DX: G89.29 Other chronic pain (principal); R10.9 Unspecified abdominal pain; I48.91 Unspecified atrial fibrillation; I10 Essential (primary) hypertension; E78.00 Pure hypercholesterolemia, unspecified; Z79.899 Other long term (current) drug therapy
CPT/HCPCS: 84484; 85014; 85018; J1100; J1170; J1790; J1885; J2212; J7121

== ENCOUNTER 2023-09-16 22:56 | Emergency (ER) | payer MEDICARE, OTHER, MEDICAID ==
[~2023-09-16] VITALS: Ht 160 cm; Wt 68.0 kg
[2023-09-16 23:11] LABS: BASOPHILS 0.5 % (0-2); EOSINOPHILS 0.4 % (0-6); LYMPHOCYTES 9.1 % (24-44); MCHC 33.4 g/dl (30-36); MCV 89.7 fl (81-99); MONOCYTES 8.5 % (0-12); NEUTROPHILS 81.5 % (39-80); PLATELET COUNT 241 K/uL (140-440); RBC 5.69 M/ul (4.3-5.7); RDW 14.7 (10.5-15.0)
[2023-09-16] MEDS ORDERED: DIPHENOXYLATE/ATROPINE 1 EA TAB PO ONE (23:15)
[2023-09-16] MEDS ORDERED: ondansetron HCL 4 MG/2 ML VIAL IV ONE (23:15)
[2023-09-16] MEDS ORDERED: SODIUM CHLORIDE 0.9% 500 ML IV PRN (23:15)
[2023-09-16 23:25] LABS: ALBUMIN 3.3 g/dL (3.4-5.0); ANION GAP 15.9 (7-21); BILIRUBIN, TOTAL 0.7 ng/dL (0.2-1.0); BUN/CREATININE RATIO 17.64 (6.0-28.6); CALCIUM 8.8 mg/dL (8.5-10.1); CREATININE, SERUM 1.36 mg/dL (0.55-1.02); MAGNESIUM 1.9 mg/dL (1.8-2.4); POTASSIUM 2.9 mmol/L (3.5-5.1); PROTEIN, TOTAL 6.6 g/dL (6.4-8.2)
[2023-09-16] MEDS ORDERED: MORPHINE SULFATE 4 MG/ML VIAL IV ONE (23:30)
[2023-09-17] MEDS ORDERED: POTASSIUM CHLORIDE 10 MEQ/100 ML BAG IV ONE (00:15)
[2023-09-17] MEDS ORDERED: POTASSIUM CHLORIDE 10 MEQ TABCR PO ONE (00:15)
[2023-09-17] MEDS ORDERED: dilTIAZem HCL 25 MG/5 ML VIAL IV ONE (00:30)
[2023-09-17] MEDS ORDERED: MORPHINE SULFATE 15 MG TABCR PO ONE (01:15)
[2023-09-17] MEDS ORDERED: ONDANSETRON ODT8 MG PO (01:46)
[2023-09-17] MEDS ORDERED: LOMOTIL TABLET1 EACH PO (01:46)
[2023-09-17 02:50] VITALS: BP 117/86
== END 2023-09-17 02:50 | disposition home or self-care (01) ==
LOC: ED 22:56
PROVIDERS: Family Medicine
DX: K52.1 Toxic gastroenteritis and colitis (principal); T40.2X5A Adverse effect of other opioids, initial encounter; G89.29 Other chronic pain; E87.6 Hypokalemia; I10 Essential (primary) hypertension; I48.91 Unspecified atrial fibrillation; E78.00 Pure hypercholesterolemia, unspecified; Z79.899 Other long term (current) drug therapy
CPT/HCPCS: 36415; 70450; 74018; 80053; 83735; 85025; 87045; 87046; 87493; 96365; 96366; 96375; 99284-25; A9270; J2270; J2405; J3480; J7040

== ENCOUNTER 2025-01-02 13:36 | Inpatient (IN) | payer MEDICARE, OTHER ==
[~2025-01-02] VITALS: Ht 160 cm; Wt 66.9 kg
[~2025-01-02 13:36] MED LIST changes: +LOMOTIL TABLET1 EACH PO; +ONDANSETRON ODT8 MG PO
[2025-01-02] MEDS ORDERED: ALBUTEROL/IPRATROPIUM 3 ML NEB INH ONE (14:30)
[2025-01-02 15:02] LABS: BASOPHILS 1.1 % (0.1-1.2); EOSINOPHILS 4.1 % (0.7-5.8); LYMPHOCYTES 17.8 % (19.3-51.7); MCH 30.4 PG (25.6-32.2); MCHC 31.1 g/dL (32.2-35.5); MCV 97.7 fL (79.4-94.8); MONOCYTES 9.6 % (4.7-12.5); NEUTROPHILS 67.2 % (34.0-71.1); RBC 3.98 M/uL (3.93-5.22)
[2025-01-02] MEDS ORDERED: AZULFIDINE500 MG PO (15:16)
[2025-01-02 15:34] LABS: ALT (SGPT) 32.0 U/L (14-59); AST (SGOT) 42.0 U/L (15-37); GLOMERULAR FILTRATION RATE,EST 54.0 mL/min (>60); PROTEIN, TOTAL 6.9 g/dL (6.4-8.2); TSH, 3RD GENERATION 24.009 uIU/mL (0.358-3.740); UREA NITROGEN 15.0 mg/dL (7-18)
[2025-01-02] MEDS ORDERED: AMLODIPINE BESYLATE 5 MG TAB PO ONE ×2 (16:00→17:30)
[2025-01-02] MEDS ORDERED: FUROSEMIDE 100 MG/10 ML VIAL IV ONE (16:00)
[2025-01-02] MEDS ORDERED: POTASSIUM CHLORIDE 10 MEQ TABCR PO ONE (16:00)
[2025-01-02] MEDS ORDERED: LABETALOL HCL 20 MG/4 ML VIAL IV PRN (20:00)
[2025-01-02] MEDS ORDERED: ACETAMINOPHEN 325 MG TAB PO PRN (20:00)
[2025-01-02] MEDS ORDERED: TRAZODONE HCL 100 MG TAB PO PRN (20:30)
[2025-01-02] MEDS ORDERED: APIXABAN 5 MG TAB PO SCH (21:00)
[2025-01-02] MEDS ORDERED: GABAPENTIN 100 MG CAP PO SCH (21:00)
[2025-01-02] MEDS ORDERED: MELATONIN 3 MG TAB PO PRN (21:00)
--- NOTE | 2025-01-02 21:35 | NUR ---
UPDATED ON PATIENT VS AND CT RESULTS.
[2025-01-02 22:31] VITALS: BP 152/76
--- NOTE | 2025-01-02 23:11 | NUR ---
PT ADMITTED TO CCU AROUND 2100- PT ALERT AND ORIENTED VITALS ARE STABLE
[2025-01-03] VITALS (9 sets, daily range): BP systolic 103–144; BP diastolic 66–107
--- NOTE | 2025-01-03 00:30 | NUR ---
PATIENT RESTING IN BED. EYES CLOSED. VS STABLE. PURE WIC FUNCTIONAL. CALL LIGHT IN REACH.
--- NOTE | 2025-01-03 02:30 | NUR ---
PATIENT REMAINS RESTLESS IN BED. EYES CLOSED. VS STABLE. CALL LIGHT IN REACH.
--- NOTE | 2025-01-03 04:30 | NUR ---
PATIENT RESTING IN BED, EYES CLOSED. WAKES EASILY WHEN RN IN ROOM. DENIED NEEDS. VS STABLE. CALL LIGHT IN REACH.
[2025-01-03 05:20] LABS: BASOPHILS 1.1 % (0.1-1.2); EOSINOPHILS 5.2 % (0.7-5.8); LYMPHOCYTES 18.7 % (19.3-51.7); MCH 31.0 PG (25.6-32.2); MCHC 32.0 g/dL (32.2-35.5); MCV 96.7 fL (79.4-94.8); MONOCYTES 10.7 % (4.7-12.5); NEUTROPHILS 64.3 % (34.0-71.1); RBC 3.68 M/uL (3.93-5.22)
[2025-01-03 05:38] LABS: ALT (SGPT) 30.0 U/L (14-59); AST (SGOT) 31.0 U/L (15-37); GLOMERULAR FILTRATION RATE,EST 55.0 mL/min (>60); PROTEIN, TOTAL 6.1 g/dL (6.4-8.2); UREA NITROGEN 15.0 mg/dL (7-18)
--- NOTE | 2025-01-03 06:26 | NUR ---
PURE WIC CANISTER EMPTIED FOR 650 MLS OF CLEAR URINE. PATIENT RESTING COMOFRTABLY IN BED. TOLERATING ROOM AIR. VS STABLE. DENIED NEEDS. CALL LIGHT IN REACH.
[2025-01-03] MEDS ORDERED: LEVOTHYROXINE SODIUM 100 MCG TAB PO SCH (07:00)
--- NOTE | 2025-01-03 07:20 | NUR ---
report from kennedi johnson, in pt room for introduction- xray in at bedside for echo. pt reports headache, and daily caffine intake. after echo will get meds and caffine.
--- NOTE | 2025-01-03 07:29 | NUR ---
UR CLINICAL REVIEW: 2 MN FOR VERSALUS-PER QUANTITATIVE ANALYST MEETS INPT FOR SHOB/CHF WITH NEED FOR ECHO, IV LASIX AND SERIAL WEIGHTS. MEDICARE INPT 01/02/25 @ 1957 ORDER MATCHES REG NO AUTH REQUIRED PER MEDICARE GUIDELINES DISCHARGE TO HOME WHEN STABLE
--- NOTE | 2025-01-03 08:43 | NUR ---
pt inc of urine, up to bsc - javier care and gown changed. pt to chair for meds and meal. reports feeling much better with breathing-room air. eating meal and drinking coffee. pt reports chronic med dilaudid from pain clinic. [address] kuo. call light in reach.
--- NOTE | 2025-01-03 08:50 | NUR ---
pt amb to br for bm with rn, OT therapy took over for eval. call light in reach.
[2025-01-03] MEDS ORDERED: POTASSIUM CHLORIDE 10 MEQ TABCR PO ONE (09:00)
[2025-01-03] MEDS ORDERED: AMIODARONE HCL 200 MG TAB PO SCH (09:00)
[2025-01-03] MEDS ORDERED: FUROSEMIDE 100 MG/10 ML VIAL IV SCH (09:00)
[2025-01-03] MEDS ORDERED: PANTOPRAZOLE SODIUM 40 MG TABEC PO SCH (09:00)
[2025-01-03] MEDS ORDERED: POTASSIUM BICARBONATE/CIT AC 20 MEQ TABEF PO ONE (09:00)
--- NOTE | 2025-01-03 09:08 | NUR ---
dr in with pt as she sits in chair. educated pt on current dx, afib, chf. pt on room air.discussed low salt diet.
[2025-01-03] MEDS ORDERED: LIDOCAINE HCL 4% 1 EACH PATCH TD SCH (09:17)
--- NOTE | 2025-01-03 09:43 | NUR ---
pt amb to br for bm and back to bed to rest. new linens. call light in reach - report headache slightly improved.
[2025-01-03] MEDS ORDERED: LEVOTHYROXINE88 MCG PO (10:24)
[2025-01-03] MEDS ORDERED: TRAZODONE HCL100 MG PO (10:25)
[2025-01-03] MEDS ORDERED: PANTOPRAZOLE SO40 MG PO (10:25)
[2025-01-03] MEDS ORDERED: GABAPENTIN100 MG PO (10:26)
[2025-01-03] MEDS ORDERED: AMIODARONE HCL200 MG PO (10:26)
[2025-01-03] MEDS ORDERED: HYDROMORPHONE HC4 MG PO (10:27)
[2025-01-03] MEDS ORDERED: LOSARTAN POTAS100 MG PO (10:28)
[2025-01-03] MEDS ORDERED: JARDIANCE10 MG PO (10:29)
[2025-01-03] MEDS ORDERED: BISOPROLOL FUMAR5 MG PO (10:30)
--- NOTE | 2025-01-03 10:31 | NUR ---
records recived and echo from 12/2023 shows ef of 61% report given to dr yeager by this rn, records from neuro from last year show tia, and previous hx of cardioversion, also pt was recently seen in [facility] 10 days ago for abd pain and cta found dvt in leg. pt reported missing doses of eliquis. educated pt and her daughter on the phone about continuity of care and a 1 page profile of care/history that pt has in purse may be helpful if she is a poor historian. pt currently has leeanna from [place] in for cardiac education.
[2025-01-03] MEDS ORDERED: DAILY VALUE1 EACH PO (11:23)
[2025-01-03] MEDS ORDERED: PEPTO-BISM262 MG/15 PO (11:24)
--- NOTE | 2025-01-03 11:30 | NUR ---
MED REC COMPLETE
--- NOTE | 2025-01-03 11:37 | NUR ---
PT NOT AVAILABLE FOR VISIT. PROVIDED PRAYER.
[2025-01-03] MEDS ORDERED: PHARMACY RENAL DOSE ADJUSTMENT 1 DOSE MISC PO SCH (12:00)
--- NOTE | 2025-01-03 13:51 | NUR ---
INTO SEE PATIENT. PERSONAL HEALTH INFORMATION OBTAINED. PATIENT LIVES AT HOME WITH . HAS 4 STEPS INTO THE CABIN THEY LIVE IN. USES A WALKER OUTSIDE OF THE HOME BUT SAYS IT IS TO SMALL FOR THE WALKER INSIDE SO SHE USES THE LÓPEZ AND FURNITURE FOR BALANCE. DOES NOT USE OXYGEN OR A CPAP. PATIENT STATES SHE DOES NOT DRIVE BUT SHE CAN DRIVE. MOSTLY HAS DRIVE HER. DENIES ANY DIFFCULTY PAYING UTLITIES OR OBTAINING FOOD. PATIENT TO HAVE PICK HER UP AT TIME OF DISCHARGE. FLYER FOR CLEARVIEW GIVEN TO FOR A QUAD CANE.
--- NOTE | 2025-01-03 14:57 | NUR ---
report called to [facility] med surg.
--- NOTE | 2025-01-03 15:31 | NUR ---
pt dc to med surg 114 with lizette rn, all belongings with pt, and introduction to new rn. pt moved via bed.
--- NOTE | 2025-01-03 15:43 | NUR ---
Patient to the medical floor. Patient is awake, alert and oriented x3, no acute distress. Patient reports chronic 6/10 low back pain-dilaudid in use. Patient's vital signs are stable, afebrile. Patient oriented to room and call light.
[2025-01-03] MEDS ORDERED: ALBUTEROL SULFATE 0.083% 3 ML VIAL INH PRN (15:45)
--- NOTE | 2025-01-03 16:29 | NUR ---
ADMIN DILAUDID 4MG PO FOR REPORTS OF 6/10 CHRONIC BACK PAIN. SNACK PROVIDED TO PATIENT. NO FURTHER NEEDS, CALL LIGHT WITHIN REACH.
--- NOTE | 2025-01-03 19:18 | NUR ---
REPORT RECEIVED FROM PURA GARCIA. PATIENT AWAKE AND ALERT LAYING IN BED WATCHING TV. SCD'S ON AND PUMPING, DENIES ANY NEEDS AT THIS TIME. BELONGINGS AND CALL LIGHT IN REACH.
--- NOTE | 2025-01-03 20:40 | NUR ---
SCHEDULED MEDICATIONS GIVEN PER EMAR ORDERS, PATIENT TOLERATED WELL. ASSESSMENT PERFORMED, VS OBTAINED. PATIENT REQUESTED SLEEP AID, WHEN AVAILBLE. SCD'S ON, NO OTHER NEEDS AT THIS TIME. CALL LIGHT IN REACH.
[2025-01-03] MEDS ORDERED: LIDOCAINE PATCH REMOVAL 1 EA TD SCH (21:00)
--- NOTE | 2025-01-03 21:01 | NUR ---
in room to assist pt to bathroom, pt up sb with cane. pt steady on feet. voided 150mls and brushed her teeth before bed. pt back in bed, call light and belongings in reach, bed alarm resumed for safety. pt verbalized understanding in calling before getting oob, appreciative of cares. fresh jeanna kylie provided per pt request, scd's in place per order. no additional needs or concerns.
--- NOTE | 2025-01-03 21:03 | NUR ---
PATIENT PRN TRAZADONE GIVEN PER PATIENT REQUEST. NO OTHER NEEDS AT THIS TIME. CALL LIGHT IN REACH.
--- NOTE | 2025-01-03 22:25 | NUR ---
CALL LIGHT ANSWERED. PT NEEDED TO USE BATHROOM. PRESENTATION MANAGER SBA WITH CANE TO BATHROOM. PT VOIDED AND ASSISTED BACK TO BED. PT GIVEN PUDDING UPON REQUEST. PT STATES NO FURTHER NEEDS AT THIS TIME. CALL LIGHT WITHIN REACH AND BED ALARM ON.
[2025-01-04] VITALS (12 sets, daily range): BP systolic 112–138; BP diastolic 52–87
--- NOTE | 2025-01-04 00:50 | NUR ---
ROUNDED ON PATIENT, RESTING ON BACK WITH EYES CLOSED. RESPIRATIONS EVEN AND UNLABORED. IVF INFUSING WITHOUT DIFFICULTY, SCD'S IN PLACE. NO NEEDS IDENTIFIED AT THIS TIME. CALL LIGHT IN REACH.
--- NOTE | 2025-01-04 00:57 | NUR ---
CALL LIGHT ANSWERED. PT NEEDED TO USE BATHROOM. TRAFFIC COURT REFEREE SBA WITH FWW TO BATHROOM. PT VOIDED AND ASSISTED BACK TO BED. PT STATES NO FURTHER NEEDS AT THIS TIME. CALL LIGHT WITHIN REACH AND BED ALARM ON.
--- NOTE | 2025-01-04 00:59 | NUR ---
CALL LIGHT ANSWERED. PT COMPLAINING OF PAIN AND REQUESTING A PAIN MED. DAM TENDER ASSISTANT NOTIFIED.
--- NOTE | 2025-01-04 02:38 | NUR ---
VS OBTAINED FROM PATIENT, I&O'S DOCUMENTED. PATIENT REQUESTED ASSISTANCE TO BATHROOM, 1 PA WITH CANE. PATIENT LAYING BACK IN BED, NO OTHER REQUESTS AT THIS TIME. CALL LIGHT IN REACH, BED ALARM SET, SCD'S APPLIED.
--- NOTE | 2025-01-04 03:10 | NUR ---
ROUNDED ON PATIENT, RESTING IN BED ON BACK WITH EYES CLOSED, RESPIRATIONS EVEN AND UNLABORED. NO SIGNS OF DISTRESS OR PAIN. CALL LIGHT IN REACH.
[2025-01-04 05:18] LABS: BASOPHILS 0.6 % (0.1-1.2); EOSINOPHILS 5.4 % (0.7-5.8); LYMPHOCYTES 15.5 % (19.3-51.7); MCH 30.1 PG (25.6-32.2); MCHC 31.1 g/dL (32.2-35.5); MCV 96.6 fL (79.4-94.8); MONOCYTES 14.5 % (4.7-12.5); NEUTROPHILS 63.8 % (34.0-71.1); RBC 3.79 M/uL (3.93-5.22)
--- NOTE | 2025-01-04 05:21 | NUR ---
SURFACE LAY OUT TECHNICIAN OBTAINED VITALS AND I&O. PT STATES NO NEEDS AT THIS TIME. CALL LIGHT WITHIN REACH AND BED ALARM ON.
[2025-01-04 05:31] LABS: GLOMERULAR FILTRATION RATE,EST 47.0 mL/min (>60); UREA NITROGEN 12.0 mg/dL (7-18)
--- NOTE | 2025-01-04 06:20 | NUR ---
SCHEDULED MEDICATION ADMINISTERED PER EMAR. FOCUSED ASSESSMENT COMPLETED. PATIENT AWAKE AND ALERT WATCHING TV AND TALKING ON PHONE UPON ENTERING THE ROOM. PATIENT DENIES FURTHER NEEDS AT THIS TIME. CALL LIGHT IN REACH.
--- NOTE | 2025-01-04 07:16 | NUR ---
CALL LIGHT ANSWERED. PT NEEDED TO USE BATHROOM. GROUP MARKETING VP 1PA WITH CANE TO BATHROOM. PT VOIDED AND STANDING WEIGHT OBTAINED. PT ASSISTED BACK TO BED. PT STATES NO FURTHER NEEDS AT THIS TIME. CALL LIGHT WITHIN REACH AND BED ALARM ON.
[2025-01-04] MEDS ORDERED: FUROSEMIDE 40 MG TAB PO SCH (09:00)
[2025-01-04] MEDS ORDERED: FUROSEMIDE 20 MG/2 ML VIAL IV ONE (09:00)
[2025-01-04] MEDS ORDERED: CYANOCOBALAMIN 1,000 MCG TAB PO SCH (09:00)
--- NOTE | 2025-01-04 09:22 | NUR ---
Admin dilaudid 4mg po for reports of 7/10 chronic back pain. Patient is awake, alert and oriented x3, no acute distress. Personal supplies and call light within reach.
--- NOTE | 2025-01-04 16:10 | NUR ---
Patient awake in bed, no acute distress. Patient requesting pain medication and to shower. Admin dilaudid 4mg po at this time for reports of 7/10 low back pain. Snack provided to patient. Pt denies further needs. Patient to shower shortly.
--- NOTE | 2025-01-04 19:26 | NUR ---
RECEIVED REPORT FROM PURA GARCIA. PATIENT SITTING AT THE EDGE OF BED STATING SHE WAS GOING TO USE THE RESTOOM. PATIENT ABLE TO WALK WTIH STBY ASSIST WITH CANE. PATIENT AMBULATED BACK TO BED, WARM BLANKET GIVEN. DENIES FURTHER NEEDS AT THIS TIME. CALL LIGHT AND BELONGINGS IN REACH.
--- NOTE | 2025-01-04 20:25 | NUR ---
vs and i&o's collected and stable. pt awake and resting in bed, enjoying pudding. call light in reach.
--- NOTE | 2025-01-04 20:34 | NUR ---
PATIENT IS LAYING IN BED. PATIENT STATED SHE PREFORMED PM AND ORAL CARE. PATIENTS CALL LIGHT IS WITHIN REACH AND NO FURTHER NEEDS AT THIS TIME.
--- NOTE | 2025-01-04 21:18 | NUR ---
SCHEDULED MEDICATIONS GIVEN PER ORDERS. ASSESSMENT PERFORMED. PATIENT UP TO BATHROOM INDEPENDENTLY USING CANE. PATIENT BACK TO BED WITH SCD'S ON AND CIRCULATING. PATIENT IV IS SALINE LOCKED. DENIES NEEDS AT THIS TIME. CALL LIGHT AND BELONGINGS IN REACH.
--- NOTE | 2025-01-04 22:37 | NUR ---
ROUNDED ON PATIENT, LAYING ON LEFT SIDE WITH HOB ELEVATED. EYES LCOSED, RESPIRATIONS EVEN AND UNLABORED. SCD'S CIRCULATING. NO NEEDS IDENTIFIED AT THIS TIME. CALL LIGHT IN REACH.
--- NOTE | 2025-01-04 23:32 | NUR ---
PATIENT WAS ASSISTED SBA TO THE BATHROOM. PATIENT IS LAYING IN BED, CALL LIGHT WITHIN REACH AND NO FURTHER NEEDS AT THIS TIME.
--- NOTE | 2025-01-05 01:35 | NUR ---
ROUNDED ON PATIENT, RESTING IN BED ON LEFT SIDE WITH EYES CLOSED. RESPIRATIONS EVEN AND UNLABORED. SCD'S CIRCULATING. NO NEEDS IDENTIFIED AT THIS TIME. CALL LIGHT IN REACH.
[2025-01-05 02:31] VITALS: BP 114/51
[2025-01-05 02:37] VITALS: BP 114/51
--- NOTE | 2025-01-05 02:37 | NUR ---
VS AND I&O'S COMPLETED AND DOCUMENTED. PATIENT RESTING IN BED WITH EYES CLOSED, RESPIRATIONS EVEN AND UNLABORED, EASILY AROUSED TO VOICE. SCD'S ON AND CIRCULATING. NO NEEDS IDENTIFIED AT THIS TIME. CALL LIGHT IN REACH.
--- NOTE | 2025-01-05 04:22 | NUR ---
ROUNDED ON PATIENT, PATIENT RESTING WITH EYES CLOSED ON HER LEFT SIDE. RESPIRATIONS ARE EVEN AND UNLABORED. NO NEEDS IDENTIFIED, CALL LIGHT IN REACH
[2025-01-05 05:20] VITALS: BP 158/81
[2025-01-05 05:22] VITALS: BP 158/81
[2025-01-05 05:25] LABS: BASOPHILS 1.0 % (0.1-1.2); EOSINOPHILS 8.1 % (0.7-5.8); LYMPHOCYTES 29.4 % (19.3-51.7); MCH 30.7 PG (25.6-32.2); MCHC 31.7 g/dL (32.2-35.5); MCV 96.7 fL (79.4-94.8); MONOCYTES 12.1 % (4.7-12.5); NEUTROPHILS 49.2 % (34.0-71.1); RBC 4.27 M/uL (3.93-5.22)
--- NOTE | 2025-01-05 05:25 | NUR ---
CALL LIGHT ANSWERED, UPON ENTERING THE ROOM, PATIENT STATES THAT SHE WAS WOKE BY THE OPEN TENTER OPERATOR FROM A DEEP SLEEP AND HAD TO USE THE RESTROOM, SHE IS NOW REPORTING "SEVERE NAUSEA" AND DISCOMFORT IN HER ABDOMEN. WHEN ASKED ABOUT THE PAIN AND NAUSEA SHE STATES "I HAVE A HISTORY OF BAD STOMACH AILMENTS, AND I DONT KNOW IF I AM HAVING ONE OF MY EPISODES BUT I REALLY HOPE NOT". PATIENT STATES PAIN IS MIDLINE AND EPIGASTRIC. PRN PAIN MEDICATION AND NAUSEA MEDICATION ADMINISTERED PER ORDER. COLD WET RAG GIVEN TO PATIENT FOR FACE. VS OBTAINED AND RECORDED. PATIENT DENIES FURTHER NEEDS, CALL LIGHT IN REACH
[2025-01-05 05:42] LABS: GLOMERULAR FILTRATION RATE,EST 45.0 mL/min (>60); UREA NITROGEN 13.0 mg/dL (7-18)
--- NOTE | 2025-01-05 06:00 | NUR ---
PATIENT LAYING IN BED, STATES HER PAIN IN NOW A 4/10 AND HER ANXIETY IS LESSENED. HER BREATHING IS REGULAR AND UNLABORED. FOCUSED ASSESSMENT COMPLETED. LOG HOOKER'S IN ROOM TO OBTAIN DAILY WEIGHT. PATIENT DENIES FURTHER NEEDS AT THIS TIME.
--- NOTE | 2025-01-05 06:20 | NUR ---
SCHEDULED MEDICATION GIVEN PER ORDERS.
--- NOTE | 2025-01-05 07:11 | NUR ---
VERBAL REPORT RECEIVED BY PURA LARA. PATIENT RESTING IN BED EYES CLOSED BREATHING EVEN AND UNLABORED. CALL LIGHT IN REACH, TV ON. NO NEEDS AT THIS TIME.
--- NOTE | 2025-01-05 07:30 | NUR ---
PATIENT IN BED RESTING WITH EYES CLOSED AT THIS TIME. WHITE BOARD UPDATED. CALL LIGHT IN REACH.
[2025-01-05] MEDS ORDERED: acetaZOLAMIDE 250 MG TAB PO ONE (09:00)
[2025-01-05 10:27] VITALS: BP 97/74
--- NOTE | 2025-01-05 10:28 | NUR ---
PATIENT SITTING UP IN BED AT THIS TIME, RN IN ROOM. VITALS DONE BY RN. I&O'S DONE AND CHARTED. CALL LIGHT IN REACH. NO FURTHER NEEDS AT THIS TIME.
[2025-01-05] MEDS ORDERED: VITAMIN B-121000 MCG PO (10:30)
[2025-01-05] MEDS ORDERED: LEVOTHYROXINE100 MCG PO (10:30)
--- NOTE | 2025-01-05 10:44 | NUR ---
MORNING ASSESSMENT COMPLETE. PATIENT COMPLAINS OF 4/10 BACK PAIN LIDOCAINE PATCH APPLIED TO LOWER BACK. THIS RN ASSISTS PATIENT TO BATHROOM W/ CANE, UNSTEADY GAIT NOTED, PATIENT EDUCATED ON USE OF ASSITVE DEVICE AND SLOW POSITION CHANGES. DISCUSSED POC, DENIES ANY NEEDS AT THIS TIME. CALL LIGHT IN REACH.
[2025-01-05] MEDS ORDERED: guaiFENesin 600 MG TABCR PO SCH (11:18)
[2025-01-05 14:10] VITALS: BP 108/69
== END 2025-01-05 14:30 | disposition home or self-care (01) | DRG 292 ==
LOC: ED 13:36 → CCU 20:29 → MS 01-03 15:24
PROVIDERS: Emergency Medicine; ADMIT Student in an Organized Health Care Education/Training Program; ATTEND Student in an Organized Health Care Education/Training Program
DX: I11.0 Hypertensive heart disease with heart failure (principal); K51.90 Ulcerative colitis, unspecified, without complications; I50.30 Unspecified diastolic (congestive) heart failure; I16.0 Hypertensive urgency; G47.00 Insomnia, unspecified; E78.00 Pure hypercholesterolemia, unspecified; I48.91 Unspecified atrial fibrillation; M54.50 Low back pain, unspecified; G89.29 Other chronic pain; E03.9 Hypothyroidism, unspecified; Z82.3 Family history of stroke; Z96.653 Presence of artificial knee joint, bilateral; Z96.611 Presence of right artificial shoulder joint; Z96.612 Presence of left artificial shoulder joint; Z98.890 Other specified postprocedural states; Z79.899 Other long term (current) drug therapy; Z79.01 Long term (current) use of anticoagulants; Z79.890 Hormone replacement therapy
CPT/HCPCS: 36415; 71045; 71260; 80048; 80053; 83735; 83880; 84443; 84484; 85025; 93306; 94640; 94667; 94799; 96374; 97161; 97165; 97530; 97535; 99285-25; A9270; J1938; J2405; Q9967